=== PATIENT | female | born 1970 | race Caucasian/White ===

== ENCOUNTER 2024-06-11 00:37 | Emergency (ER) | payer BC, SELFPAY ==
[2024-06-11] VITALS (14 sets, daily range): BP systolic 146–170; BP diastolic 68–138; PULSE 64–88; TEMP 36.4; O2SAT 100; BMI 35.0
--- NOTE | 2024-06-11 01:00 | ECG_ITS ---
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
--- NOTE | 2024-06-11 01:02 | ED_ITS ---
HPI HPI - General Adult General Chief complaint: Chest Pain Stated complaint: SOB, CHEST PAIN Time Seen by Provider: 06/11/24 00:59 Source: patient Mode of arrival: walk-in Limitations: no limitations History of Present Illness HPI narrative: Patient is a 53-year-old female who is presenting to the ER today with chief complaint of midepigastric pain that radiates under bilateral breast. Patient believes that she is having acid reflux complications. Patient stated at 5 PM today, she started noticing the pain. Patient took Rolaids and Tums. Patient went out to dinner to [facility]. Patient ordered a cheeseburger, had some of it but then did not eat anymore because she is concerned will cause more pain. Patient had more Rolaids and Tums before she went to bed. Patient is laying in bed and pain was increasing so patient came into the ER. Patient's father just 3 days ago. Patient father was progressing and declining. However she has been having a lot of anxiety and stress the last several weeks. Patient drove herself to the ER. Patient has no cardiac history. Patient is hyperventilating. Patient has no nausea, vomiting, diarrhea. No recent traveling. No other acute complaints. Patient did take 2 baby aspirin prior to arrival. All systems are negative except as noted/marked. All systems reviewed and otherwise negative. Nurses note and vital signs reviewed and patient is not hypoxic. General: The patient appears mild distress with hyperventilating, admitted anxiety, and pain to midepigastric area. Patient is resting uncomfortably on cart. Patient is not toxic, lethargic, or listless Skin: Warm, dry, no pallor noted. There is no rash noted. No petechiae, purpura. Head: Normocephalic, atraumatic Eye: Normal conjunctiva, no drainage, EOMI. PERRL Ears, Nose, Mouth, and Throat: oral mucosa is moist. Nares patent. Mouth without vesicles. Cardiovascular: Regular Rate and Rhythm, no murmur, gallop, rub Respiratory: Patient is in no distress, no accessory muscle use, lungs are clear to auscultation, no wheezing, rales or rhonchi Back: non-tender, no CVA tenderness bilaterally to percussion. No CT LS midline pain GI: Moderate midepigastric tenderness to palpation, mild right upper quadrant and left upper quadrant tenderness palpation, no peritoneal signs, no flank pain bilateral, soft, obese, otherwise no tenderness to palpation, no masses appreciated. No rebound, guarding, or rigidity noted. No distention Musculoskeletal: Patient has full range of motion of all of the extremities, no motor, sensory, or focal neurological deficits Neurological: A&O x4, normal speech Psychiatric: Cooperative Related Data Previous Rx's ?Medication ?Instructions ?Recorded hydroxyzine HCl 50 mg tablet 50 mg PO TID PRN itching #8 tabs 06/11/24 lorazepam 1 mg tablet (Ativan) 1 mg PO DAILY PRN anxiety #4 tabs 06/11/24 Allergies Allergy/AdvReac Type Severity Reaction Status Date / Time No Known Drug Allergies Allergy Verified 06/11/24 00:48 Opioid HPI Opioid Management Most Recent Opioid Data: No Data to Display Exam Constitutional Vital Signs, click to edit/add: Last Vital Signs Temp 97.5 F L 06/11/24 00:40 Pulse 74 06/11/24 02:20 Resp 19 06/11/24 02:20 BP 151/87 H 06/11/24 02:20 Pulse Ox 100 06/11/24 00:57 O2 Del Method Room Air 06/11/24 00:57 Course Vital Signs Vital signs: Vital Signs Temperature 97.5 F L 06/11/24 00:40 Pulse Rate 78 06/11/24 00:40 Respiratory Rate 18 06/11/24 00:40 Blood Pressure 170/138 H 06/11/24 00:40 Pulse Oximetry 100 06/11/24 00:40 Oxygen Delivery Method Room Air 06/11/24 00:40 Temperature 97.5 F L 06/11/24 00:40 Pulse Rate 74 06/11/24 02:20 Respiratory Rate 19 06/11/24 02:20 Blood Pressure 151/87 H 06/11/24 02:20 Pulse Oximetry 100 06/11/24 00:57 Oxygen Delivery Method Room Air 06/11/24 00:57 Medical Decision Making MDM Narrative Medical decision making narrative: Chest x-ray was read by Dr. Saeed. No acute process seen in the chest, mild hypoinflated lungs, no edema or pneumonia. See official report. Patient had 2 baby aspirin prior to arrival. Patient was given 1 mg of Ativan, 2 mg of morphine, Pepcid and GI cocktail. When Michela RN walked into the room to give medications, patient is hyperventilating improved and after medication was given, patient shortly thereafter had relief of symptoms. Patient admittedly was having situational anxiety. Patient D-dimer, troponin, lab work shows no acute findings. Patient was extremely thankful for help and apologetic for her demanding pain medication and other things when she initially arrived. Daughter came to pick patient up to drive her home. Education on not using Rolaids or Tums was discussed, but using Maalox or Mylanta if needed for rescue medication. Patient recommended to use Pepcid daily if needed for gastritis. Patient was sent home with prescription for Vistaril and Ativan to use if needed for anxiety and situation anxiety. Patient was very thankful for help, no question at discharge. Cardiac workup showed no acute findings. Lab Data Labs: Lab Results 06/11/24 Range/Units 00:50 WBC 7.8 (4.0-11.0) 10^3/uL RBC 4.36 (4.20-5.40) 10^6/uL Hgb 13.6 (12.0-16.0) g/dL Hct 39.0 (36.0-48.0) % MCV 89.4 (81.0-99.0) fL MCH 31.2 (26.7-34.0) pg MCHC 34.9 (29.9-35.2) g/dL RDW 11.9 (11.0-15.0) % Plt Count 270 (150-450) 10^3/uL MPV 10.0 (9.5-13.5) fL Neut % (Auto) 49.0 (43.0-75.0) % Lymph % (Auto) 39.8 (20.5-60.0) % [place] % (Auto) 6.3 (1.7-12.0) % Eos % (Auto) 4.0 (0.9-7.0) % Baso % (Auto) 0.6 (0.2-2.0) % Neut # (Auto) 3.8 (1.4-6.5) 10^3/uL Lymph # (Auto) 3.1 (1.2-3.8) 10^3/uL [place] # (Auto) 0.5 (0.3-0.8) 10^3/uL Eos # (Auto) 0.3 (0.0-0.7) 10^3/uL Baso # (Auto) 0.1 (0.0-0.1) 10^3/uL Abs Immat Gran (auto) 0.02 (0.00-0.03) 10^3/uL Imm/Tot Granulo (auto) 0.3 (0.0-0.5) % D-Dimer 0.38 (<=0.59) mg/L FEU Sodium 142 (136-145) mmol/L Potassium 3.1 L (3.5-5.1) mmol/L Chloride 104 (98-107) mmol/L Carbon Dioxide 27.0 (21.0-32.0) mmol/L Anion Gap 14.1 BUN 12.0 (7.0-18.0) mg/dL Creatinine 0.98 (0.55-1.02) mg/dL Est GFR ( Amer) >60 (>=60 mL/min/1.73m^2) Est GFR (Non-Af Amer) 59 L (>=60 mL/min/1.73m^2) BUN/Creatinine Ratio 12.2 Glucose 137 H (74-106) mg/dL Calcium 9.0 (8.5-10.1) mg/dL Total Bilirubin 0.4 (0.2-1.0) mg/dL AST 25 (15-37) U/L ALT 29 (14-59) U/L Alkaline Phosphatase 96 (46-116) U/L Troponin I High Sens 13.5 (4.0-51.3) pg/mL NT-Pro-B Natriuret Pep 75.0 (<=900.0) pg/mL Total Protein 7.3 (6.4-8.2) g/dL Albumin 3.7 (3.4-5.0) g/dL Globulin 3.6 g/dL Albumin/Globulin Ratio 1.0 Lipase 66.0 (16.0-77.0) U/L ECG Data Attestation: I personally reviewed and interpreted this ECG as follows: (EKG interpretation. Normal sinus rhythm at 60 beats a minute. Normal axis deviation. No acute ST elevation, no acute ectopy. QTc of 433.) Discharge Plan Discharge Chief Complaint: Chest Pain Clinical Impression: Hyperventilation syndrome, Chest pain, Gastritis, Situational anxiety Patient Disposition: Home, Self-Care Time of Disposition Decision: 02:08 Condition: Good Prescriptions / Home Meds: New lorazepam [Ativan] 1 mg tablet 1 mg PO DAILY PRN (Reason: anxiety) Qty: 4 0RF hydroxyzine HCl 50 mg tablet 50 mg PO TID PRN (Reason: itching) Qty: 8 0RF Print Language: Tunisian Instructions: Chest Pain (ED), Hyperventilation (ED), Gastritis (ED), Anxiety (ED) Additional Instructions: Do not use Tums or Rolaids [id number]. Use Maalox or Mylanta as needed along with daily Pepcid to help with acid reflux. Use bland diet for the next 1 to 2 days. Ativan has been prescribed to use for severe anxiety or panic attacks if needed or to help sleep at nighttime. This may cause mild sedation. It may help at nighttime to help with sleeping as well. Vistaril has been prescribed to help with mild anxiety if needed. This may cause mild sedation. This would help with sleeping at nighttime as well. If symptoms continue follow-up with your PCP or any other acute concerns return back to the ER. Referrals: Physician,Non-Staff, [Physician] - 1 week Discharge Date/Time: 06/11/24 02:26
[2024-06-11 01:17] LABS: Basophils Absolute Auto 0.1 10^3/uL (0.0-0.1); Basophils Percent Auto 0.6 % (0.2-2.0); Eosinophils Absolute Auto 0.3 10^3/uL (0.0-0.7); Hemoglobin 13.6 g/dL (12.0-16.0); Immature Granulocytes Abs Auto 0.02 10^3/uL (0.00-0.03); Immature Granulocytes Pct Auto 0.3 % (0.0-0.5); Lymphocytes Absolute Auto 3.1 10^3/uL (1.2-3.8); Lymphocytes Percent Auto 39.8 % (20.5-60.0); Mean Corpuscular HGB Conc 34.9 g/dL (29.9-35.2); Mean Corpuscular Hemoglobin 31.2 pg (26.7-34.0); Mean Corpuscular Volume 89.4 fL (81.0-99.0); Monocytes Absolute Auto 0.5 10^3/uL (0.3-0.8); Monocytes Percent Auto 6.3 % (1.7-12.0); Neutrophils Absolute Auto 3.8 10^3/uL (1.4-6.5); Platelet Count 270 10^3/uL (150-450); Red Blood Count 4.36 10^6/uL (4.20-5.40); Red Cell Distribution Width 11.9 % (11.0-15.0); White Blood Count 7.8 10^3/uL (4.0-11.0)
[2024-06-11 01:27] LABS: D Dimer 0.38 mg/L FEU (<=0.59)
[2024-06-11] MEDS: lidocaine HCL 15 ML, MAG HYDROX/ALUMINUM HYD/SIMETH 30 ML, HYOSCYAMINE SULFATE 0.25 MG PO (01:28)
[2024-06-11] MEDS: LORAZEPAM 2 MG/ML VIAL 1 MG IV (01:28)
[2024-06-11] MEDS: MORPHINE SULFATE 2 MG/ML SYRINGE IV (01:28)
[2024-06-11] MEDS: FAMOTIDINE/PF 20 MG/2 ML VIAL IV (01:28)
[2024-06-11 01:39] LABS: Alanine Aminotransferase 29 U/L (14-59); Albumin Level 3.7 g/dL (3.4-5.0); Alkaline Phosphatase 96 U/L (46-116); Anion Gap 14.1; Aspartate Amino Transferase 25 U/L (15-37); BUN Creatinine Ratio 12.2; Bilirubin Total 0.4 mg/dL (0.2-1.0); Chloride 104 mmol/L (98-107); Estimated GFR (African America >60 (>=60 mL/min/1.73m^2); Estimated GFR (Non-African Ame 59 (>=60 mL/min/1.73m^2); Globulin 3.6 g/dL; Glucose 137 mg/dL (74-106); Potassium 3.1 mmol/L (3.5-5.1); Sodium 142 mmol/L (136-145); Total Protein 7.3 g/dL (6.4-8.2); Troponin I High Sensitivity 13.5 pg/mL (4.0-51.3)
== END 2024-06-11 02:26 | disposition home or self-care (01) ==
PROVIDERS: Emergency Provider Emergency Medicine; PCP Family Medicine
DX: R10.13 Epigastric pain (principal); R07.89 Other chest pain; F45.8 Other somatoform disorders; K29.70 Gastritis, unspecified, without bleeding; F41.8 Other specified anxiety disorders
CPT/HCPCS: 36415; 71045; 80053; 83690; 83880; 84484; 85025; 85378; 93005; 96374; 96375; 99285; J2060; J2270; J3490